=== PATIENT | female | born 1955 | race Caucasian/White ===

== ENCOUNTER 2017-07-18 09:04 | Emergency (ER) | payer SELFPAY ==
[~2017-07-18] VITALS: Ht 152.4 cm; Wt 62.0 kg
[2017-07-18 09:07] VITALS: Ht 152.4 cm; Wt 62.0 kg
[2017-07-18] MEDS ORDERED: KETOROLAC 30 MG INJ IM STA (09:41)
[2017-07-18 09:56] LABS: URINE BLOOD (Dip) POC 1+ (NEGATIVE)
[2017-07-18] MEDS ORDERED: CYCL-319 PO (10:35)
[2017-07-18] MEDS ORDERED: HYDR-906 PO (10:35)
[2017-07-18] MEDS ORDERED: NAPR-260 PO (10:35)
[2017-07-18] MEDS ORDERED: CIPR500T4 PO (10:35)
--- NOTE | 2017-07-18 10:42 | ERD ---
ER Documentation Chief Complaint Chief Complaint PELVIC PAIN NAUSEA X 1 WEEK SOMETIMES HAS DYSURIA HPI 61-year-old female complaining of pelvic pain with nausea and right-sided buttock pain at 1 week. Patient has pain with movement of her right leg. Denies any numbness or tingling to her extremity. Is possibly feeling some dysuria but not totally sure. Denies changes in bowel movement. Denies numbness or tingling in her extremities. Has not taken medications for symptoms. Denies vomiting. Denies fever. Denies traumatic injury. ROS All systems reviewed and are negative except as per history of present illness. Medications Home Meds Active Scripts Naproxen* (Naprosyn*) 500 Mg Tablet, 500 MG PO BID Y for PAIN AND/OR INFLAMMATION, #30 TAB Prov:NITA PATTERSON PA-C 07/18/17 Cyclobenzaprine Hcl* (Cyclobenzaprine Hcl*) 10 Mg Tablet, 10 MG PO TID, #15 TAB Prov:NITA PATTERSON PA-C 07/18/17 Hydrocodone/Acetaminophen ([place] 5-325 Tablet) 1 Each Tablet, 1 TAB PO Q6H Y for PAIN, #7 TAB Prov:NITA PATTERSON PA-C 07/18/17 Ciprofloxacin Hcl* (Ciprofloxacin Hcl*) 500 Mg Tablet, 500 MG PO BID for 7 Days , TAB Prov:NITA PATTERSON PA-C 07/18/17 Allergies Allergies: Coded Allergies: No Known Allergy (Unverified , 09/25/16) PMhx/Soc Medical and Surgical Hx: pt denies Medical Hx, pt denies Surgical Hx Hx Alcohol Use: No Hx Substance Use: No Hx Tobacco Use: No Smoking Status: Never smoker Physical Exam Vitals Vital Signs Date Time Temp Pulse Resp B/P Pulse Ox O2 Delivery O2 Flow Rate FiO2 07/18/17 09:07 98.6 89 18 158/77 99 Physical Exam GENERAL: The patient is well-appearing, well-nourished, in no acute distress CHEST: Clear to auscultation bilaterally. There are no rales, wheezes or rhonchi. HEART: Regular rate and rhythm. No murmurs, clicks, rubs or gallops. No S3 or S4. ABDOMEN:Soft, nontender and nondistended. Good bowel sounds. No rebound or guarding. No gross peritonitis. No gross organomegaly or masses BACK: No midline or flank tenderness. EXTREMITIES: Equal pulses bilaterally. There is no peripheral clubbing, cyanosis or edema. No focal swelling or erythema. Full range of motion. Grossly neurovascularly intact. Mild tenderness to palpation over right buttock NEUROLOGIC: Alert and oriented. Cranial nerves II through XII intact. Motor strength in all 4 extremities with 5 out of 5 strength. Sensation grossly intact. DTR 2+ throughout. SKIN: There is no apparent rash or petechiae. The skin is warm and dry. Results 24 hrs Laboratory Tests Test 07/18/17 09:56 Bedside Urine pH (LAB) 7.0 Bedside Urine Protein (LAB) Negative Bedside Urine Glucose (UA) Negative Bedside Urine Ketones (LAB) Negative Bedside Urine Blood 1+ Bedside Urine Nitrite (LAB) Negative Bedside Urine Leukocyte Esterase (L 1+ Current Medications Medications (Trade) Dose Ordered Sig/Teddy Route PRN Reason Start Time Stop Time Status Last Admin Dose Admin Ketorolac Tromethamine (Toradol) 30 mg ONCE STAT IM 07/18/17 09:41 07/18/17 09:42 DC 07/18/17 09:56 Procedures/MDM MDM: 61 yr old female complaining of dysuria with right sided back pain. Right- sided back pain is not over renal region. I have low suspicion for pyelonephritis. Pain extends down right buttocks I have high suspicion for possible sciatica. I have low suspicion for epidural abscess or discitis. I have low suspicion for cauda equina. I have low suspicion for acute abdomen or pelvic infection. Patient's exam is non-concerning. Patient will be told to follow-up with primary care within 1-2 days for close evaluation and told to return to the ER if symptoms change or worsen. All questions answered at discharge. Departure Diagnosis: Primary Impression: Back pain with sciatica Additional Impression: UTI (urinary tract infection) Condition: Stable Patient Instructions: Understanding Urinary Tract Infections (UTIs), Back Pain W/ Sciatica Referrals: COMM[facility]ITY [facility] YOU HAVE RECEIVED A MEDICAL SCREENING EXAM AND THE RESULTS INDICATE THAT YOU DO NOT HAVE A CONDITION THAT REQUIRES URGENT TREATMENT IN THE EMERGENCY DEPARTMENT. FURTHER EVALUATION AND TREATMENT OF YOUR CONDITION CAN WAIT UNTIL YOU ARE SEEN IN YOUR DOCTORS OFFICE WITHIN THE NEXT 1-2 DAYS. IT IS YOUR RESPONSIBILITY TO MAKE AN APPOINTMENT FOR FOLOW-UP CARE. IF YOU HAVE A PRIMARY DOCTOR --you should call your primary doctor and schedule an appointment IF YOU DO NOT HAVE A PRIMARY DOCTOR YOU CAN CALL OUR PHYSICIAN REFERRAL HOTLINE AT IF YOU CAN NOT AFFORD TO SEE A PHYSICIAN YOU CAN CHOSE FROM THE FOLLOWING [facility] [address] [facility] [address] [facility] [address] [facility] [address] [facility] [facility] [address] [facility]. [address] Additional Instructions: FOLLOW UP WITH YOUR PRIMARY CARE PHYSICIAN TOMORROW.Return to this facility if you are not improving as expected. NITA PATTERSON PA-C Jul 18, 2017 10:42
[2017-07-18 10:47] VITALS: BP 138/78; PULSE 68; RESP 18
== END 2017-07-18 10:48 | disposition home or self-care (01) ==
LOC: FTE 09:04
DX: M54.41 Lumbago with sciatica, right side (principal); N39.0 Urinary tract infection, site not specified
CPT/HCPCS: 81003; 96372; 99284; J1885

== ENCOUNTER 2019-02-21 04:01 | Inpatient (IN) | payer OTHER ==
[2019-02-21] VITALS (20 sets, daily range): BP systolic 113–139; BP diastolic 60–69; PULSE 92–122; RESP 17–23; Ht 152.4 cm; Wt 56.8 kg
[~2019-02-21] VITALS: Ht 152.4 cm; Wt 56.8 kg
[~2019-02-21 04:01] MED LIST: CIPR500T4 PO; CYCL10TA7 PO; HYDR-4011 PO; NAPR-985 PO
--- NOTE | 2019-02-21 04:12 | ERD ---
ER Documentation Chief Complaint Chief Complaint ab pain HPI The patient is a 63-year-old female, presenting to the ER because of right upper quadrant abdominal pain that began around 4 PM today, worse after eating. She also complains of vomiting or diarrhea, denies hematemesis/hematochezia/fever. She had similar symptoms previously, denies chest pain, dyspnea, dysuria. She does not smoke nor drink Past medical history: None Past surgical history: Ovarian cyst ROS All systems reviewed and are negative except as per history of present illness. Medications Home Meds Discontinued Scripts Naproxen* (Naprosyn*) 500 Mg Tablet, 500 MG PO BID PRN for PAIN AND/OR INFLAMMATION, #30 TAB Prov:NITA PATTERSON PA-C 07/18/17 Cyclobenzaprine Hcl* (Cyclobenzaprine Hcl*) 10 Mg Tablet, 10 MG PO TID, #15 TAB Prov:NITA PATTERSON PA-C 07/18/17 Hydrocodone/Acetaminophen ([place] 5-325 Tablet) 1 Each Tablet, 1 TAB PO Q6H PRN for PAIN, #7 TAB Prov:NITA PATTERSON PA-C 07/18/17 Ciprofloxacin Hcl* (Ciprofloxacin Hcl*) 500 Mg Tablet, 500 MG PO BID for 7 Days, TAB Prov:NITA PATTERSON PA-C 07/18/17 Allergies Allergies: Coded Allergies: No Known Allergy (Unverified , 02/21/19) PMhx/Soc Hx Alcohol Use: No Hx Substance Use: No Hx Tobacco Use: No Physical Exam Vitals Vital Signs Date Temp Pulse Resp B/P (MAP) Pulse Ox O2 O2 Flow FiO2 Time Delivery Rate 02/21/19 97.4 100 18 173/73 100 04:02 (106) Physical Exam Const: No acute distress. Head: Atraumatic. Eyes: Normal Conjunctiva. ENT: Normal External Ears, Nose and Mouth. Neck: Full range of motion. No meningismus. Resp: Clear to auscultation bilaterally. Cardio: Regular rate and rhythm. Abd: Soft, non distended, normal bowel sounds, right upper quadrant tenderness, no right lower quadrant/rigidity/rebound/CVA tenderness Skin: No petechiae or rashes. Back: No midline or flank tenderness. Ext: No cyanosis, or edema. Neur: Awake and alert. No focal deficit Psych: Normal Mood and Affect. Result Diagram: 02/21/1941902/21/19419 Results 24 hrs Laboratory Tests Test 02/21/19 04:20 White Blood Count 16.2 10^3/ul Red Blood Count 4.52 10^6/ul Hemoglobin 12.3 g/dl Hematocrit 38.1 % Mean Corpuscular Volume 84.3 fl Mean Corpuscular Hemoglobin 27.2 pg Mean Corpuscular Hemoglobin Concent 32.3 g/dl Red Cell Distribution Width 13.2 % Platelet Count 247 10^3/UL Mean Platelet Volume 12.2 fl Immature Granulocytes % 0.700 % Neutrophils % 81.5 % Lymphocytes % 12.4 % Monocytes % 4.6 % Eosinophils % 0.4 % Basophils % 0.4 % Nucleated Red Blood Cells % 0.0 /100WBC Immature Granulocytes # 0.110 10^3/ul Neutrophils # 13.2 10^3/ul Lymphocytes # 2.0 10^3/ul Monocytes # 0.7 10^3/ul Eosinophils # 0.1 10^3/ul Basophils # 0.1 10^3/ul Nucleated Red Blood Cells # 0.0 10^3/ul Sodium Level 143 mmol/L Potassium Level 4.1 mmol/L Chloride Level 104 mmol/L Carbon Dioxide Level 29 mmol/L Anion Gap 10 Blood Urea Nitrogen 16 mg/dl Creatinine 0.67 mg/dl Est Glomerular Filtrat Rate mL/min > 60 mL/min Glucose Level 232 mg/dl Calcium Level 9.7 mg/dl Total Bilirubin 0.4 mg/dl Direct Bilirubin 0.00 mg/dl Indirect Bilirubin 0.4 mg/dl Aspartate Amino Transf (AST/SGOT) 158 IU/L Alanine Aminotransferase (ALT/SGPT) 75 IU/L Alkaline Phosphatase 141 IU/L Total Protein 7.8 g/dl Albumin 4.5 g/dl Globulin 3.30 g/dl Albumin/Globulin Ratio 1.36 Lipase 81 U/L Current Medications Medications Dose Sig/Teddy Start Time Status Last (Trade) Ordered Route PRN Stop Time Admin Dose Reason Admin Morphine 2 mg ONCE STAT 02/21/19 DC 02/21/19 Sulfate IV 04:17 04:29 (morphine) 02/21/19 04:20 Ondansetron 4 mg ONCE STAT 02/21/19 DC 02/21/19 HCl (Zofran IV 04:17 04:28 Inj) 02/21/19 04:20 Ketorolac 30 mg ONCE STAT 02/21/19 DC 02/21/19 Tromethamine IV 04:17 04:28 (Toradol) 02/21/19 04:20 Sodium 1,000 ml @ Q1H ONCE 02/21/19 DC 02/21/19 Chloride 1,000 mls/hr IV 04:30 04:28 02/21/19 05:29 Piperacillin 100 ml @ ONCE ONCE 02/21/19 Sod/ 200 mls/hr IVPB 05:30 Tazobactam 02/21/19 05:59 Sod Procedures/MDM [place] [address] Radiology Main Line: [phone] DIAGNOSTIC IMAGING REPORT Patient: DEB MIGUEL : 1955 Age: 63 Sex: F MR #: [id number] DOS: 02/21/19 0417 Ordering MD: TANVIR MORGAN MD Location: E/R Room/Bed: PROCEDURE: US Abdomen. CLINICAL INDICATION: Abdominal pain TECHNIQUE: Multiple real-time images were acquired of the patient's abdomen and retroperitoneum utilizing a high resolution transducer. COMPARISON: None FINDINGS: Multiple nonmobile gallstones with positive ultrasonic Romero's sign. Although the gallbladder wall is of normal thickness and no pericholecystic fluid rule out acute calculus cholecystitis. Common bile duct normal limits in size maximal transverse diameter 5.05 mm. No intrahepatic biliary ductal dilation. Liver normal in size maximal sagittal dimension 15.76 cm. Normal liver parenchymal echogenicity without focal lesions. Right kidney normal in size maximal sagittal dimension 9.39 cm. Normal right renal parenchymal echogenicity without hydronephrosis intra renal mass or calculus. Normal portal venous flow. Pancreas is unremarkable. IMPRESSION: 1. Multiple nonmobile gallstones with positive ultrasonic Romero's sign. No gallbladder wall thickening or pericholecystic fluid. Rule out acute calculus cholecystitis. 2. No biliary ductal dilation. 3. Unremarkable liver pancreas and right kidney. RPTAT:AAJJ Physician Ailin Date Time Electronically viewed and signed by Arely Osuna Physician on 02/21/2019 05:29 BM/ CC: TANVIR MORGAN MD [phone] UA Pending Consultation: I discussed the patient with the on-call general surgeon Dr. Bach, who was made aware of the lab, the treatment, the patient condition and he accepted the patient MEDICAL MAKING DECISION: The patient is a 63-year-old female, presenting with acute symptomatic cholelithiasis, treated with Toradol 30 mg IV, morphine 2 mg IV for pain and Zofran 4 mg IV for nausea and 1 L normal saline for clinical dehydration with good response. The differential diagnoses considered include but are not limited to cholelithiasis, cholecystitis, choledocholithiasis, cholangitis, pancreatitis, hepatitis, gastritis, peptic ulcer disease, gastric ulcer, appendicitis, cystitis, diverticulitis, partial small bowel obstruction. Departure Diagnosis: Primary Impression: Symptomatic cholelithiasis Condition: Stable Comments I discussed the findings with the patient. I discussed the patient with , who was made aware of the lab, the treatment, the patient condition. The patient is admitted to Disclaimer: Inadvertent spelling and grammatical errors are likely due to EHR/dictation software use and do not reflect on the overall quality of patient care. Also, please note that the electronic time recorded on this note does not necessarily reflect the actual time of the patient encounter. TANVIR MORGAN MD February 21, 2019 04:12
[2019-02-21] MEDS ORDERED: ONDANSETRON 4 MG INJ IV STA (04:17)
[2019-02-21] MEDS ORDERED: KETOROLAC 30 MG INJ IV STA (04:17)
[2019-02-21] MEDS ORDERED: morphine 2 MG INJ IV STA (04:17)
[2019-02-21] MEDS ORDERED: SOD CHLORIDE 0.9% 1,000 ML IV ONE ×2 (04:30→14:42)
[2019-02-21] MEDS ORDERED: PIPER-TAZO 3.375 GM IV (PMX) 100 ML IVPB ONE (05:30)
[2019-02-21] MEDS ORDERED: DESFLURANE 15 MIN ONE (07:00)
--- NOTE | 2019-02-21 07:54 | CONS ---
Assessment/Plan Assessment/Plan Assessment/Plan (Daily) Acute cholecystitis Recommend: Laparoscopic cholecystectomy possible open. I have discussed the pro cedure, outcomes, alternatives and risks in detail with the patient daughter who have an excellent understanding of the nature of the patient's situation and agreed to the proposed plan of therapy as outlined. Consultation Date/Type/Reason Admit Date/Time Date of Consultation: February 21, 2019 Type of Consult General surgery Reason for Consultation Acute cholecystitis Date/Time of Note DATE: 02/21/19 TIME: 07:50 Hx of Present Illness The patient is an otherwise healthy 63-year-old female who presents with midepigastric and postprandial abdominal pain. Abdominal ultrasound shows multiple gallstones without ductal dilatation. The patient has had no fevers, chills jaundice. The bilirubin is normal Review of systems: HEENT: Unremarkable Pulmonary: No history of asthma, pneumonia or shortness of breath Cardiac: No history of chest pain, GA or arrhythmia GI: As in the HPI : Ovarian cystectomy several years ago Musculoskeletal: Unremarkable Constitutional: no complaints, improved Eyes: no complaints ENT: no complaints Respiratory: no complaints Cardiovascular: no complaints Gastrointestinal: no complaints Genitourinary: no complaints Musculoskeletal: no complaints Skin: no complaints Neurologic: no complaints Endocrine: no complaints Lymphatic: no complaints Psychological: no complaints, nl mood/affect Immunologic: no complaints Past Medical History Home Meds Discontinued Scripts Naproxen* (Naprosyn*) 500 Mg Tablet, 500 MG PO BID PRN for PAIN AND/OR INFLAMMATION, #30 TAB Prov:NITA PATTERSON PA-C 07/18/17 Cyclobenzaprine Hcl* (Cyclobenzaprine Hcl*) 10 Mg Tablet, 10 MG PO TID, #15 TAB Prov:NITA PATTERSON PA-C 07/18/17 Hydrocodone/Acetaminophen ([place] 5-325 Tablet) 1 Each Tablet, 1 TAB PO Q6H PRN for PAIN, #7 TAB Prov:NITA PATTERSON PA-C 07/18/17 Ciprofloxacin Hcl* (Ciprofloxacin Hcl*) 500 Mg Tablet, 500 MG PO BID for 7 Days, TAB Prov:NITA PATTERSON PA-C 07/18/17 Allergies: Coded Allergies: No Known Allergy (Unverified , 02/21/19) Past Surgical History Past Surgical Hx: other (Ovarian cystectomy) Family History Significant Family History: no pertinent family hx Social History Smoking Status: Never smoker Exam/Review of Systems Exam Vitals Vital Signs Date Temp Pulse Resp B/P (MAP) Pulse Ox O2 O2 Flow FiO2 Time Delivery Rate 02/21/19 97.4 100 18 173/73 100 04:02 (106) Constitutional: alert, oriented Psych: no complaints Head: normocephalic Eyes: nl conjunctiva Neck: supple Respiratory: clear to auscultation Cardiovascular: regular rate and rhythm Gastrointestinal: tender (Epigastrium) Musculoskeletal: nl extremities to inspection Neurological: CLINICAL STAFF ANESTHESIOLOGIST II-XII intact Skin: nl turgor Results Result Diagram: 02/21/19 0420 02/21/19 0420 Results 24hrs Laboratory Tests Test 02/21/19 04:20 02/21/19 05:50 White Blood Count 16.2 H Red Blood Count 4.52 Hemoglobin 12.3 Hematocrit 38.1 Mean Corpuscular Volume 84.3 Mean Corpuscular Hemoglobin 27.2 L Mean Corpuscular Hemoglobin Concent 32.3 Red Cell Distribution Width 13.2 Platelet Count 247 Mean Platelet Volume 12.2 H Immature Granulocytes % 0.700 H Neutrophils % 81.5 H Lymphocytes % 12.4 L Monocytes % 4.6 Eosinophils % 0.4 Basophils % 0.4 Nucleated Red Blood Cells % 0.0 Immature Granulocytes # 0.110 H Neutrophils # 13.2 H Lymphocytes # 2.0 Monocytes # 0.7 Eosinophils # 0.1 Basophils # 0.1 Nucleated Red Blood Cells # 0.0 Sodium Level 143 Potassium Level 4.1 Chloride Level 104 Carbon Dioxide Level 29 Anion Gap 10 Blood Urea Nitrogen 16 Creatinine 0.67 Est Glomerular Filtrat Rate mL/min > 60 Glucose Level 232 H Calcium Level 9.7 Total Bilirubin 0.4 Direct Bilirubin 0.00 Indirect Bilirubin 0.4 Aspartate Amino Transf (AST/SGOT) 158 H Alanine Aminotransferase (ALT/SGPT) 75 H Alkaline Phosphatase 141 H Total Protein 7.8 Albumin 4.5 Globulin 3.30 H Albumin/Globulin Ratio 1.36 Lipase 81 Bedside Urine pH (LAB) 7.0 Bedside Urine Protein (LAB) Negative Bedside Urine Glucose (UA) Negative Bedside Urine Ketones (LAB) Negative Bedside Urine Blood Trace-intact H Bedside Urine Nitrite (LAB) Negative Bedside Urine Leukocyte Esterase (L Trace H LAURA REYNOSO MD February 21, 2019 07:54
--- NOTE | 2019-02-21 09:16 | HP ---
Date/Time of Note Date/Time of Note DATE: 02/21/19 TIME: 09:16 Assessment/Plan VTE Prophylaxis Pharmacological prophylaxis: NA/contraindicated Pharm contraindication: low risk/ambulating Lines/Catheters IV [facility]from [facility]): [place] [place] Assessment/Plan Hospital Course 63-year-old female with no significant past medical history who presents the emergency room with chief complaint of right upper quadrant abdominal pain with a positive sonographic Romero sign, who was taken directly to the OR from the emergency room and underwent laparoscopic cholecystectomy. 1. Acute cholecystitis. -Status post laparoscopic cholecystectomy on 02/01/2019. -Continue pain control. -Initiation and advancement of diet as per general surgery. -Continue antimicrobials. -Encourage incentive spirometry and early ambulation. 2. Transaminitis without hyperbilirubinemia. -Most probably secondary to #1. -Management as per #1. 3. Hyperglycemia. -Denies any history of diabetes. -Obtain a hemoglobin A1c to evaluate the blood glucose control over the past few weeks. Plan: The patient will be admitted to inpatient medical surgical floor. The patient will be started on a clear liquid diet and the diet will be advanced as tolerated. The patient will be started on DVT prophylaxis. The patient will remain a full code. Activities will be as tolerated. The rest of the patient's management will be based on the clinical course, inputs from consultants, and the results of diagnostic studies. Based on the patient's clinical presentation, she most probably requires at least 1 midnight's stay for further management and evaluation of her clinical presentation. The patient was seen in collaboration with Dr. Schwab. Result Diagram: 02/21/19 0420 02/21/19 0420 Results 24hrs Laboratory Tests Test 02/21/19 04:20 02/21/19 05:50 White Blood Count 16.2 H Red Blood Count 4.52 Hemoglobin 12.3 Hematocrit 38.1 Mean Corpuscular Volume 84.3 Mean Corpuscular Hemoglobin 27.2 L Mean Corpuscular Hemoglobin Concent 32.3 Red Cell Distribution Width 13.2 Platelet Count 247 Mean Platelet Volume 12.2 H Immature Granulocytes % 0.700 H Neutrophils % 81.5 H Lymphocytes % 12.4 L Monocytes % 4.6 Eosinophils % 0.4 Basophils % 0.4 Nucleated Red Blood Cells % 0.0 Immature Granulocytes # 0.110 H Neutrophils # 13.2 H Lymphocytes # 2.0 Monocytes # 0.7 Eosinophils # 0.1 Basophils # 0.1 Nucleated Red Blood Cells # 0.0 Sodium Level 143 Potassium Level 4.1 Chloride Level 104 Carbon Dioxide Level 29 Anion Gap 10 Blood Urea Nitrogen 16 Creatinine 0.67 Est Glomerular Filtrat Rate mL/min > 60 Glucose Level 232 H Calcium Level 9.7 Total Bilirubin 0.4 Direct Bilirubin 0.00 Indirect Bilirubin 0.4 Aspartate Amino Transf (AST/SGOT) 158 H Alanine Aminotransferase (ALT/SGPT) 75 H Alkaline Phosphatase 141 H Total Protein 7.8 Albumin 4.5 Globulin 3.30 H Albumin/Globulin Ratio 1.36 Lipase 81 Bedside Urine pH (LAB) 7.0 Bedside Urine Protein (LAB) Negative Bedside Urine Glucose (UA) Negative Bedside Urine Ketones (LAB) Negative Bedside Urine Blood Trace-intact H Bedside Urine Nitrite (LAB) Negative Bedside Urine Leukocyte Esterase (L Trace H HPI/ROS Admit Date/Time Admit Date/Time Hx of Present Illness This is a 63-year-old female who denies any significant past medical history. The patient came to the emergency room with chief complaint of right upper quadrant abdominal pain with associated nonbilious, nonbloody vomiting. The patient verbalized that the abdominal pain was worse after oral intake. The patient denied any chest pain. She denied any fevers or chills. In the emerg ency room, the patient's gallbladder ultrasound showed multiple nonmobile gallstones with positive ultrasonic Romero's sign. The patient was also noticed to have leukocytosis. The patient had underlying transaminitis without hyperbilirubinemia. The patient was started on antimicrobials. The patient was kept n.p.o. General surgery consult was obtained by the ER physician. The patient was taken to the OR directly from the emergency room and the patient underwent a laparoscopic cholecystectomy. ROS Constitutional: nausea, poor po Eyes: no complaints ENT: no complaints Respiratory: no complaints Cardiovascular: no complaints Gastrointestinal: pain, nausea, vomiting Genitourinary: no complaints Musculoskeletal: no complaints Skin: no complaints Neurologic: no complaints Endocrine: no complaints Lymphatic: no complaints Psychological: no complaints Immunologic: no complaints PMH/Family/Social Past Medical History Medical History: no pertinent history Coded Allergies: No Known Allergy (Unverified , 02/21/19) Past Surgical History B/L salpingo-oophorectomy. Hysterectomy Past Surgical Hx: other (Ovarian cystectomy) Family History Significant Family History: no pertinent family hx Social History Alcohol Use: none Smoking Status: Never smoker Drug Use: none Exam/Review of Systems Vital Signs Vitals Vital Signs Date Temp Pulse Resp B/P (MAP) Pulse Ox O2 O2 Flow FiO2 Time Delivery Rate 02/21/19 97.4 100 18 173/73 100 04:02 (106) Exam Exam General: Adequately build 63 year-old female lying in bed in no apparent distress. HEENT: Normocephalic, atraumatic. Eyes: Anicteric sclerae, conjunctivae clear. ENT: Nasal septum midline, oral mucosa is moist. Neck supple, no JVD noticed. Respiratory: Bilaterally clear breath sounds. No use of accessory muscles of respiration. No adventitious breath sounds. Cardiovascular: S1, S2 heard. Regular rate and rhythm. Grade 1/6 to 2/6 systolic ejection murmur. Abdomen: Soft and nondistended. Dressing over laparoscopic incision sites. Genitourinary: Deferred. Extremities: No cyanosis, no clubbing, no edema. Peripheral pulses palpable. Neurologic: Cranial nerves II through XII grossly intact. The patient is awake, alert, and oriented. Skin: Normal skin turgor. No skin rashes. Additional Comments Gallbladder Ultrasound IMPRESSION: 1. Multiple nonmobile gallstones with positive ultrasonic Romero's sign. No gallbladder wall thickening or pericholecystic fluid. Rule out acute calculus cholecystitis. 2. No biliary ductal dilation. 3. Unremarkable liver pancreas and right kidney. CXR IMPRESSION: No acute cardiopulmonary disease. NICK KYLE NP February 21, 2019 09:16
--- NOTE | 2019-02-21 11:21 | PREAC ---
Date/Time of Note Date/Time of Note DATE: 02/21/19 TIME: 11:20 Anesthesia Eval and Record Evaluation Time Pre-Procedure Interview DATE: 02/21/19 TIME: 11:20 Age 63 Sex female NPO: 8 hrs Preoperative diagnosis cholecystitis Planned procedure Lap. Cholecystectomy Past Medical History Past Medical History: None Surgery & Anesthesia Issues No known issue Meds Anticoagulation: No Beta Karla within 24 hr: No Reason Beta Karla not given: Pt. not on B-Karla Discontinued Scripts Naproxen* (Naprosyn*) 500 Mg Tablet, 500 MG PO BID PRN for PAIN AND/OR INFLA MMATION, #30 TAB Prov:NITA PATTERSON PA-C 07/18/17 Cyclobenzaprine Hcl* (Cyclobenzaprine Hcl*) 10 Mg Tablet, 10 MG PO TID, #15 TAB Prov:NITA PATTERSON PA-C 07/18/17 Hydrocodone/Acetaminophen ([place] 5-325 Tablet) 1 Each Tablet, 1 TAB PO Q6H PRN for PAIN, #7 TAB Prov:NITA PATTERSON PA-C 07/18/17 Ciprofloxacin Hcl* (Ciprofloxacin Hcl*) 500 Mg Tablet, 500 MG PO BID for 7 Days, TAB Prov:NITA PATTERSON PA-C 07/18/17 Meds reviewed: Yes Allergies Coded Allergies: No Known Allergy (Unverified , 02/21/19) Allergies Reviewed: Yes Labs/Studies Labs Reviewed: Reviewed by anesthesiologist Result Diagram: 02/21/19 0420 02/21/19 0420 Laboratory Tests 02/21/19 04:20 test: N/A Pre-procedure Exam Last vitals Vital Signs Date Temp Pulse Resp B/P (MAP) Pulse Ox O2 O2 Flow FiO2 Time Delivery Rate 02/21/19 97.4 100 18 173/73 100 04:02 (106) Airway: Adequate mouth opening Mallampati: Mallampati II Teeth: Normal Lung: Normal Heart: Normal ASA Physical Status ASA physical status: 2 Emergency: None Planned Anesthetic General/MAC: ETT Pre-operative Attestations Prior to commencing anesthesia and surgery, the patient was re-evaluated, there was verification of: *The patient's identity *The results of appropriate recent lab work and preoperative vital signs *The above evaluation not changing prior to induction *Anesthetic plan, risk benefits, alternative and complications discussed with patient/family; questions answered; patient/family understands, accepts and wishes to proceed. JUANJOSE SAMUELS MD February 21, 2019 11:21
[2019-02-21] MEDS ORDERED: CEFAZOLIN 1 GM INJ ONE (11:25)
[2019-02-21] MEDS ORDERED: MIDAZOLAM 1 MG/ML 2 ML INJ ONE (11:25)
[2019-02-21] MEDS ORDERED: PROPOFOL 20 ML ONE (11:25)
[2019-02-21] MEDS ORDERED: ROCURONIUM 50 MG INJ ONE (11:25)
[2019-02-21] MEDS ORDERED: NEOSTIGMINE 3 MG/3 ML SYRINGE ONE (11:27)
[2019-02-21] MEDS ORDERED: GLYCOPYRROLATE 0.4 MG INJ ONE (11:27)
[2019-02-21] MEDS ORDERED: ONDANSETRON 4 MG INJ ONE (11:27)
[2019-02-21] MEDS ORDERED: KETOROLAC 30 MG INJ ONE (11:27)
[2019-02-21] MEDS ORDERED: BUPIVACAINE 0.25% (MPF) 30 ML INJ ONE (11:34)
[2019-02-21] MEDS ORDERED: hydrALAzine 20 MG INJ ONE (12:23)
[2019-02-21] MEDS ORDERED: OXYCODONE/ACETAMINOPHEN (5/325) TAB PO PRN ×3 (12:30→13:00)
[2019-02-21] MEDS ORDERED: HYDROmorphONE 1 MG/5 ML IV SYRINGE IV PRN (12:30)
--- NOTE | 2019-02-21 12:46 | OPR ---
Date/Time of Note Date/Time of Note DATE: 02/21/19 TIME: 12:42 Operative Report Procedure Date: February 21, 2019 Preoperative Diagnosis Acute cholecystitis Postoperative Diagnosis Acute cholecystitis Operation/Procedure Performed Laparoscopic cholecystectomy Surgeon Edinson Reynoso MD Rotational Moulding Operator None Anesthesia Type: general Anesthesiologist: JUANJOSE SAMUELS MD Estimated Blood Loss: minimal Transfusion none Specimen Gallbladder Grafts/Implants none Tubes/Drains None Complications none Pt Condition Post Procedure: stable Disposition: PACU Indications Acute cholecystitis Procedure Description After satisfactory general endotracheal anesthesia was achieved, the abdomen was prepped and draped in the usual fashion. Because the patient had a lower vertical midline incision the abdomen was insufflated with a right upper quadrant Veress needle to 15 mmHg pressure. The Veress needle was removed and the incision extended to 5 mm through which a 5 mm trocar was placed. A 5 mm 0 degree lens was placed. Laparoscopy showed an acutely inflamed edematous gallbladder. There were minimal adhesions in the midline. Next under direct visualization a 5 mm umbilical trocar was placed. The camera was then placed into the umbilical port. Under direct visualization a 12 mm epigastric trocar was placed as well as a second 5 mm right upper quadrant trocar. The dome of the gallbladder was grasped and retracted superiorly. Omental adhesions were taken off the gallbladder using blunt and electrocautery dissection. This enabled the distal gallbladder to be grasped and retracted inferolaterally. The hepatoduodenal ligament was carefully dissected between the gallbladder and the very well visualized common bile duct. The cystic duct was then dissected thoroughly and then triply hemoclipped and divided high at the junction of the gallbladder and the cystic duct. The cystic artery was identified immediately posteriorly. This was triply hemoclipped and divided between clips. The gallbl adder was then dissected from below using electrocautery dissection and placed fully intact into an Endo Catch removed via the epigastric route. Hemostasis of the liver bed was total and irrigant returned clear. The abdomen was then desufflated and all trochars were removed. The fascia of the epigastrium was closed with a single suture of 0 Vicryl. The skin punctures were infiltrated with 30 cc of 0.25% plain Marcaine and closed with dorota. Sponge and needle counts were reported as correct x2. EDINSON REYNOSO MD February 21, 2019 12:46
--- NOTE | 2019-02-21 12:53 | PAC ---
Date/Time of Note Date/Time of Note DATE: 02/21/19 TIME: 12:52 Post-Anesthesia Notes Post-Anesthesia Note Last documented vital signs Vital Signs Date Temp Pulse Resp B/P (MAP) Pulse Ox O2 O2 Flow FiO2 Time Delivery Rate 02/21/19 97.4 100 18 173/73 100 04:02 (106) Activity: WNL Respiratory function: WNL Cardiovascular function: WNL Mental status: Baseline Pain reasonably controlled: Yes Hydration appropriate: Yes Nausea/Vomiting absent: Yes JUANJOSE SAMUELS MD February 21, 2019 12:53
[2019-02-21] MEDS ORDERED: morphine 2 MG INJ IV PRN (13:00)
[2019-02-21] MEDS ORDERED: ONDANSETRON 4 MG INJ IV PRN (13:00)
[2019-02-21] MEDS ORDERED: ACETAMINOPHEN 325 MG TAB PO PRN (15:00)
[2019-02-21] MEDS ORDERED: NACL 0.9% 3 ML SYG IV SCH (15:00)
--- NOTE | 2019-02-21 20:25 | RADRPT ---
Vent Rate: 121 bpm RR Interval: 496 msec GA Interval: 151 msec QRS Duration: 74 msec QT Interval: 314 msec QTC Interval: 446 msec P-R-T [place]: 73 - 5 - 43 degrees Sinus tachycardia...rate> 99 Electronically Signed By: Krzysztof Thacker
[2019-02-22 04:00] VITALS: BP 124/63; PULSE 89; RESP 17
[2019-02-22 07:16] VITALS: BP 137/65; PULSE 83; RESP 14
--- NOTE | 2019-02-22 10:16 | PDOCDIS ---
Discharge Instructions CONDITION [id number] Patient Condition: [id number] Stable HOME CARE INSTRUCTIONS: [id number] Diet Instructions: [id number] Low Fat /Cholesterol FOLLOW UP/APPOINTMENTS Follow-up Plan Edinson Bach MD Specialty: General Surgery Office Address [address] [place] [address] Office OTHER ORDERS: Other Orders: 1. Take a low cholesterol, low carbohydrate diet as tolerated. 2. Keep incisions clean and dry. May shower. Avoid tub baths and swimming for 2 weeks. Use mild soap and pat dry the incisions. 3. Take medications as needed for pain. 4. Call the surgeon or go to the nearest ER if you have severe abdominal pain despite pain medications. 5. Call the surgeon or go to the nearest ER if you notice any bleeding or secretions coming out of the incision sites. Also call the surgeon if you notice any blood in stool, if you have persistent fevers, or any other unusual signs or symptoms. 6. Follow-up with the surgeon [Dr. Bach] in 7 days for incision check. 7. Avoid heavy lifting [more than 10-15 pounds] for 4 weeks. NICK KYLE NP February 22, 2019 10:16
--- NOTE | 2019-02-22 10:57 | QN ---
Documentation Comment Postoperative day #1 Symptomatically improved Slight transaminitis persists. Bilirubin is normal. Leukocytosis improved Abdominal examination is benign Plan: Cleared for discharge home today with p.o. pain medications and antibiotics LAURA REYNOSO MD February 22, 2019 10:57
[2019-02-22] MEDS ORDERED: HYDR-4011 PO (11:18)
[2019-02-22] MEDS ORDERED: DOCU-144 PO (11:18)
--- NOTE | 2019-02-22 11:27 | DS ---
Date/Time of Note Date/Time of Note DATE: 02/22/19 TIME: 11:24 Discharge Summary Admission/Discharge Info Admit Date/Time February 21, 2019 at 06:01 Discharge Date/Time Discharge Diagnosis 1. Acute cholecystitis. Status post laparoscopic cholecystectomy on 02/01/2019. 2. Transaminitis without hyperbilirubinemia. 3. Diabetes mellitus type 2. New onset Vs newly diagnosed. A1C 7.1. 4. Dyslipidemia. Patient Condition: Stable Consults 1. Edinson Bach MD, General Surgery. Procedures Operative Report Procedure Date: February 21, 2019 Preoperative Diagnosis Acute cholecystitis Postoperative Diagnosis Acute cholecystitis Operation/Procedure Performed Laparoscopic cholecystectomy Surgeon Edinson Bach MD Hx of Present Illness This is a 63-year-old female who denies any significant past medical history. The patient came to the emergency room with chief complaint of right upper quadrant abdominal pain with associated nonbilious, nonbloody vomiting. The patient verbalized that the abdominal pain was worse after oral intake. The patient denied any chest pain. She denied any fevers or chills. In the emergency room, the patient's gallbladder ultrasound showed multiple nonmobile gallstones with positive ultrasonic Romero's sign. The patient was also noticed to have leukocytosis. The patient had underlying transaminitis without hyperbilirubinemia. The patient was started on antimicrobials. The patient was kept n.p.o. General surgery consult was obtained by the ER physician. The patient was taken to the OR directly from the emergency room and the patient underwent a laparoscopic cholecystectomy. Hospital Course The patient was taken to the OR directly from the emergency room and the patient underwent a laparoscopic cholecystectomy. The patient was maintained on antimicrobial therapy. The patient was started on a clear liquid diet and her diet was advanced as tolerated to a regular consistency diet without any significant gastrointestinal symptoms. She was provided with adequate pain control. She was encouraged on frequent use of incentive spirometry and frequent ambulation. The patient recovered well postoperatively. The patient was noticed to have transaminitis without hyperbilirubinemia, most probably secondary to her underlying cholecystitis. The patient was noticed to have hyperglycemia on her lab work on the day of admission. Therefore, hemoglobin A1c was ordered and this revealed evidence of diabetes mellitus with A1c of 7.1. The patient was informed about the new diagnosis. A dietary consult was obtained. The patient was advised on a low carbohydrate diet and the necessity to recheck the hemoglobin A1c in 1 month with her primary care physician. The patient was also noticed to have dyslipidemia with elevated triglycerides and low HDL. The patient was informed about the same. As mentioned earlier, diet enid consult was obtained for advice on dietary restrictions. The patient was also instructed to follow-up with her primary care physician within the next 4 weeks for a repeat lipid panel check. The patient had a stable hospital course. The patient was cleared by general surgery to be discharged home. Discharge Instructions 1. Take a low cholesterol, low carbohydrate diet as tolerated. 2. Keep incisions clean and dry. May shower. Avoid tub baths and swimming for 2 weeks. Use mild soap and pat dry the incisions. 3. Take medications as needed for pain. 4. Call the surgeon or go to the nearest ER if you have severe abdominal pain despite pain medications. 5. Call the surgeon or go to the nearest ER if you notice any bleeding or secretions coming out of the incision sites. Also call the surgeon if you notice any blood in stool, if you have persistent fevers, or any other unusual signs or symptoms. 6. Follow-up with the surgeon [Dr. Bach] in 7 days for incision check. 7. Avoid heavy lifting [more than 10-15 pounds] for 4 weeks. The patient verbalized understanding of her discharge instructions. At this time I would like to thank Dr. Bach for seeing the patient, doing the necessary procedures, and providing clinical recommendations. The patient was seen in collaboration with Dr. Schwab. Home Meds Active Scripts Docusate Sodium* (Colace*) 100 Mg Capsule, 100 MG PO BID, #20 CAP Prov:NICK KYLE NP 02/22/19 Hydrocodone/Acetaminophen ([place] 5-325 Tablet) 1 Each Tablet, 1 EACH PO Q6H for pain, #14 TAB Prov:NICK KYLE NP 02/22/19 Discontinued Scripts Naproxen* (Naprosyn*) 500 Mg Tablet, 500 MG PO BID PRN for PAIN AND/OR INFLAMMATION, #30 TAB Prov:NITA PATTERSON PA-C 07/18/17 Cyclobenzaprine Hcl* (Cyclobenzaprine Hcl*) 10 Mg Tablet, 10 MG PO TID, #15 TAB Prov:NITA PATTERSON PA-C 07/18/17 Hydrocodone/Acetaminophen ([place] 5-325 Tablet) 1 Each Tablet, 1 TAB PO Q6H PRN for PAIN, #7 TAB Prov:NITA PATTERSON PA-C 07/18/17 Ciprofloxacin Hcl* (Ciprofloxacin Hcl*) 500 Mg Tablet, 500 MG PO BID for 7 Days, TAB Prov:NITA PATTERSON PA-C 07/18/17 Follow-up Plan Edinson Bach MD Specialty: General Surgery Office Address [address] [place] [address] Office Primary Care Provider Not On Staff Doctor Time spent on discharge: > 30 minutes Pending Labs Laboratory Tests Test 02/22/19 04:49 White Blood Count 12.7 10^3/ul (4.8-10.8) Red Blood Count 3.79 10^6/ul (4.20-5.40) Hemoglobin 10.5 g/dl (12.0-16.0) Hematocrit 32.4 % (37.0-47.0) Mean Corpuscular Volume 85.5 fl (82.0-101.0) Mean Corpuscular Hemoglobin 27.7 pg (29.0-33.0) Mean Corpuscular Hemoglobin Concent 32.4 g/dl (32.0-37.0) Red Cell Distribution Width 13.8 % (11.5-14.5) Platelet Count 204 10^3/UL (140-415) Mean Platelet Volume 12.9 fl (7.4-10.4) Immature Granulocytes % 0.400 % (0.001-0.429) Neutrophils % 73.5 % (39.0-77.0) Lymphocytes % 21.0 % (15.0-51.0) Monocytes % 4.7 % (0.0-11.0) Eosinophils % 0.1 % (0.0-7.0) Basophils % 0.3 % (0.0-2.0) Nucleated Red Blood Cells % 0.0 /100WBC (0.0-0.0) Immature Granulocytes # 0.050 10^3/ul (0.0-0.031) Neutrophils # 9.3 10^3/ul (1.6-7.5) Lymphocytes # 2.7 10^3/ul (0.8-2.9) Monocytes # 0.6 10^3/ul (0.3-0.9) Eosinophils # 0.0 10^3/ul (0.0-0.5) Basophils # 0.0 10^3/ul (0.0-0.1) Nucleated Red Blood Cells # 0.0 10^3/ul (0.0-0.0) Sodium Level 140 mmol/L (135-144) Potassium Level 4.5 mmol/L (3.5-5.1) Chloride Level 109 mmol/L (97-110) Carbon Dioxide Level 24 mmol/L (21-31) Anion Gap 7 (5-13) Blood Urea Nitrogen 12 mg/dl (7-20) Creatinine 0.66 mg/dl (0.44-1.00) Est Glomerular Filtrat Rate mL/min > 60 mL/min (>60) Glucose Level 135 mg/dl (70-220) Calcium Level 8.8 mg/dl (8.4-10.2) Phosphorus Level 3.2 mg/dl (2.5-4.9) Magnesium Level 2.1 mg/dl (1.7-2.5) Total Bilirubin 0.5 mg/dl (0.2-1.3) Direct Bilirubin 0.00 mg/dl (0.00-0.20) Indirect Bilirubin 0.5 mg/dl (0-1.1) Aspartate Amino Transf (AST/SGOT) 178 IU/L (15-46) Alanine Aminotransferase (ALT/SGPT) 281 IU/L (13-69) Alkaline Phosphatase 130 IU/L (42-121) Total Protein 6.2 g/dl (6.1-8.1) Albumin 3.4 g/dl (3.3-4.9) Globulin 2.80 g/dl (1.3-3.2) Albumin/Globulin Ratio 1.21 Triglycerides Level 200 mg/dl (0-149) Cholesterol Level 198 mg/dl (100-200) LDL Cholesterol, Calculated 124 mg/dl HDL Cholesterol 34 mg/dl (35-98) Cholesterol/HDL Ratio 5.8 RATIO NICK KYLE NP February 22, 2019 11:27
== END 2019-02-22 13:00 | disposition home or self-care (01) | DRG 419 ==
LOC: E/R 04:01 → REC 06:01 → MS1 14:15
PROVIDERS: ADMIT Internal Medicine; ATTEND Internal Medicine
PROC: 0FT44ZZ Resection of Gallbladder, Percutaneous Endoscopic Approach (ICD-10-PCS; principal; 2019-02-21 10:30)
DX: K81.0 Acute cholecystitis (principal); E11.65 Type 2 diabetes mellitus with hyperglycemia; E78.5 Hyperlipidemia, unspecified; R74.0 Nonspecific elevation of levels of transaminase and lactic acid dehydrogenase [LDH]
CPT/HCPCS: 36415; 71045; 76705; 80053; 80061; 81003; 83036; 83690; 83735; 84100; 85025; 88304; 93005; 96374; 96375; J0360; J0690; J1885; J2250; J2270; J2405; J2543; J2710; J3010; J7030